=== PATIENT | female | born 1980 | race American Indian/Alaskan Native ===

== ENCOUNTER 2017-07-16 16:01 | Emergency (ER) | payer BC ==
[~2017-07-16] VITALS: Ht 165.1 cm; Wt 65.8 kg
[2017-07-16] MEDS ORDERED: TDAP DIPH,PERTUSS,TET VAC/PF 0.5 ML DISP.SYRIN IM ONE ×2 (16:29→16:30)
--- NOTE | 2017-07-16 16:35 | NUR ---
Patient discharged to home in stable conditon & brisk steady gait. Written and verbal after care instructions given to patient. Patient verbalizes understanding of instructions.
== END 2017-07-16 16:37 | disposition home or self-care (01) ==
LOC: ER 16:04
DX: S81.012A Laceration without foreign body, left knee, initial encounter (principal); Y92.89 Other specified places as the place of occurrence of the external cause; Y99.8 Other external cause status
CPT/HCPCS: 12001; 90471; 90715; 99283; A4217; A4663